=== PATIENT | male | born 1965 | race American Indian/Alaskan Native ===

== ENCOUNTER 2018-02-18 17:29 | Emergency (ER) | payer SELFPAY ==
--- NOTE | 2018-02-18 19:47 | ED PDOC ---
Arrival/HPI - General Chief Complaint: Finger,Hand,&Wrist Time Seen by Provider: 02/18/18 17:31 Historian: Patient - History of Present Illness Narrative History of Present Illness (Text): Andrew Llanes is a 52 year old male who presents to the Emergency department complaining of right wrist pain and swelling since yesterday. Patient denies any trauma or injury. Patient reports pain with range of motion of the wrist and notes pain is located to the ulnar aspect of the wrist. Patient also noticed some redness around the distal right ulna. Patient denies any fever, chills, history of Gout, history of IVDA, numbness/weakness/tingling in the extremity, forearm pain, or any other complaints. Symptom Onset: Gradual Symptom Course: Unchanged Activities at Onset: Light Context: Home Past Medical History - Provider Review Nursing Documentation Reviewed: Yes - Infectious Disease Hx of Infectious Diseases: None - Psychiatric Hx Substance Use: No Family/Social History - Physician Review Nursing Documentation Reviewed: Yes Family/Social History: Unknown Family HX Smoking Status: Current Some Days Smoker Hx Alcohol Use: Yes Frequency of alcohol use: Socially Hx Substance Use: No Allergies/Home Meds Allergies/Adverse Reactions: Allergies No Known Allergies Allergy (Verified 02/18/18 17:52) Review of Systems - Physician Review All systems were reviewed & negative as marked: Yes - Review of Systems Constitutional: absent: Fatigue, Fevers Respiratory: absent: SOB, Cough Cardiovascular: absent: Chest Pain, Palpitations Gastrointestinal: absent: Abdominal Pain, Nausea, Vomiting Genitourinary Male: absent: Dysuria, Frequency, Hematuria Musculoskeletal: Arthralgias (+right wrist pain). absent: Back Pain, Neck Pain Skin: Cellulitis. absent: Rash, Pruritis Neurological: absent: Headache, Dizziness Psychiatric: absent: Anxiety, Depression Physical Exam Vital Signs Reviewed: Yes Vital Signs Temp Pulse Resp BP Pulse Ox 02/18/18 17:30 98.2 F 75 18 122/76 98 Temperature: Afebrile Blood Pressure: Normal Pulse: Regular Respiratory Rate: Normal Appearance: Positive for: Well-Appearing, Non-Toxic, Comfortable Pain Distress: None Mental Status: Positive for: Alert and Oriented X 3 - Systems Exam Head: Present: Atraumatic Mouth: Present: Moist Mucous Membranes Neck: Present: Normal Range of Motion Respiratory/Chest: Present: Clear to Auscultation, Good Air Exchange. No: Respiratory Distress, Accessory Muscle Use Cardiovascular: Present: Regular Rate and Rhythm, Normal S1, S2. No: Murmurs Upper Extremity: Present: Edema, Normal ROM (Full ROM of right wrist with pain), NORMAL PULSES, Tenderness (+ ttp over ulnar styloid; There is No right forearm tenderess, erythema, or edema), Erythema (Small area of erythema over the right ulnar styloid with minimal edema), Neurovascularly Intact, Capillary Refill < 2 s. No: Normal Inspection, Cyanosis, Temperature Abnormalties, Deformity Neurological: Present: GCS=15, Speech Normal Skin: Present: Warm, Dry, Normal Color. No: Rashes Psychiatric: Present: Alert, Oriented x 3 Medical Decision Making ED Course and Treatment: Impression: 52 year old male complaining of right wrist pain and swelling since yesterday. Plan: -- XR Right Wrist -- Keflex -- Toradol -- Reassess and disposition Prior Visits: Notes and results from previous visits were reviewed. Patient was last seen in the emergency department on Progress Notes: Reviewed radiology, XR Right Wrist negative for any acute processes. Pt given a velcro splint and Keflex. I discussed all results in depth with the patient advised follow-up with theOrthopedist and primary care physician within the next 2 days. Advised immediate return if symptoms worsen persist or if new concerning symptoms develop. I stressed the importance of immediate return if signs of infection develop: High fevers, increasing pain, increasing redness, increasing swelling Patient verbalizes understanding of discharge instructions and need for immediate followup. patient was seen and evaluated by dr. reed impression: Cellulitis, wrist pain Motrin every 6 hours as needed for pain Keflex; 1 capsule 4 times daily x 7 days. Follow up with primary care physician within the next 2 days Follow up with the orthopedist within the next 2 days Return if symptoms worsen persist or if new symptoms develop: high fevers, increasing redness, swelling, pain, or if any other concerning symptoms develop. Reassessment Condition: Re-examined, Improved - RAD Interpretation Radiology Orders: 02/18/18 18:42 WRIST, RIGHT 3 VIEWS [RAD] Stat - Medication Orders Current Medication Orders: Discontinued Medications Ketorolac Tromethamine (Toradol) 60 mg IM STAT STA Stop: 02/18/18 18:45 Last Admin: 02/18/18 19:26 Dose: 60 mg MAR Pain Assessment Document 02/18/18 19:26 GMD (Rec: 02/18/18 19:26 GMD [id number]) Pain Reassessment Is this a pain reassessment? No IM Administration Charges Document 02/18/18 19:26 GMD (Rec: 02/18/18 19:26 GMD [id number]) Injection Site MAR Injection Site Right Deltoid Charges for Administration # of IM Administrations 1 - Scribe Statement The provider has reviewed the documentation as recorded by the Matty Christopher Provider Scribe Attestation: All medical record entries made by the Scribe were at my direction and personally dictated by me. I have reviewed the chart and agree that the record accurately reflects my personal performance of the history, physical exam, medical decision making, and the department course for this patient. I have also personally directed, reviewed, and agree with the discharge instructions and disposition. Disposition/Present on Arrival - Present on Arrival Any Indicators Present on Arrival: No History of DVT/PE: No History of Uncontrolled Diabetes: No Urinary Catheter: No History of Decub. Ulcer: No History Surgical Site Infection Following: None - Disposition Have Diagnosis and Disposition been Completed?: Yes Diagnosis: Wrist pain, Cellulitis Disposition: HOME/ ROUTINE Disposition Time: 19:30 Patient Plan: Discharge Condition: GOOD Discharge Instructions (ExitCare): Cellulitis (ED) Additional Instructions: Motrin every 6 hours as needed for pain Keflex; 1 capsule 4 times daily x 7 days. Follow up with primary care physician within the next 2 days Follow up with the orthopedist within the next 2 days Return if symptoms worsen persist or if new symptoms develop: high fevers, increasing redness, swelling, pain, or if any other concerning symptoms develop. Prescriptions: Cephalexin [Keflex] 500 mg PO QID #28 capsule Ibuprofen [Motrin] 600 mg PO Q6H PRN #20 tab PRN Reason: pain/fever reduction Referrals: Emmanuel Puente MD [Staff Provider] - Follow up with primary Aixa Roberts MD [Medical Doctor] - Follow up with primary [facility] [Outside] - Follow up with primary [facility] [Outside] - Follow up with primary Forms: [employer] (Arabic), WORK NOTE
[2018-02-19 00:57] VITALS: BMI 27.6
[2018-02-19 00:58] VITALS: BP 119/78; PULSE 70; RESP 18; TEMP 98.2; O2SAT 100
--- NOTE | 2018-02-19 12:46 | RAD ---
Date of service: 02/18/2018 PROCEDURE: Right Wrist Radiographs. HISTORY: wrist injury COMPARISON: None. FINDINGS: BONES: No acute fracture or destructive bony lesion identified. JOINTS: No subluxation or dislocation. SOFT TISSUES: Normal. OTHER FINDINGS: None. IMPRESSION: Unremarkable right wrist radiographs.
== END 2018-02-18 20:08 | disposition home or self-care (01) ==
LOC: ED 17:29
DX: L03.113 Cellulitis of right upper limb (principal); M25.531 Pain in right wrist
CPT/HCPCS: 73110; 96372; 99284; J1885